=== PATIENT | female | born 1965 | race Caucasian/White ===

== ENCOUNTER 2018-10-19 22:18 | Emergency (ER) | payer OTHER ==
[~2018-10-19] VITALS: Ht 165.1 cm; Wt 70.8 kg
[~2018-10-19 22:18] MED LIST: ALBU90OI INH; ESTROGEN/PROGESTERON; LEVSOD50 PO; Omeprazole20 M1 PO; Sleep Aid25 M1 PO; VAGIFEM10 MCG VG
[2018-10-20] MEDS ORDERED: CITA20 PO (00:33)
== END 2018-10-20 01:17 | disposition home or self-care (01) ==
LOC: ER 22:18
DX: S51.812A Laceration without foreign body of left forearm, initial encounter (principal); Z23 Encounter for immunization; Z79.899 Other long term (current) drug therapy; Z88.1 Allergy status to other antibiotic agents; Z88.8 Allergy status to other drugs, medicaments and biological substances; X58.XXXA Exposure to other specified factors, initial encounter
CPT/HCPCS: 12001; 90471; 90714; 99282-25

== ENCOUNTER 2020-07-19 10:09 | Emergency (ER) | payer OTHER ==
[~2020-07-19] VITALS: Ht 165.1 cm; Wt 72.6 kg
[~2020-07-19 10:09] MED LIST changes: +CITA20 PO
[2020-07-19 10:49] LABS: BASOPHILS ABSOLUTE AUTO 0.05 K/mm3 (0.00-0.23); BASOPHILS PERCENT AUTO 1 % (0-2); EOSINOPHILS ABSOLUTE AUTO 0.16 K/mm3 (0.00-0.68); EOSINOPHILS PERCENT AUTO 3 % (0-6); Hematocrit 41.1 % (33.0-51.0); Hemoglobin 13.7 g/dL (11.5-16.0); IMMATURE GRAN ABSOLUTE AUTO 0.06 K/mm3 (0.00-0.10); IMMATURE GRAN PERCENT AUTO 1 % (0-1); LYMPHOCYTES ABSOLUTE AUTO 1.76 K/mm3 (0.84-5.20); LYMPHOCYTES PERCENT AUTO 29 % (21-46); MONOCYTES ABSOLUTE AUTO 0.61 K/mm3 (0.16-1.47); MONOCYTES PERCENT AUTO 10 % (4-13); Mean Corpuscular HGB 30.4 pg (26.0-34.0); Mean Corpuscular HGB Conc 33.3 g/dL (31.5-36.5); Mean Corpuscular Volume 91 fL (80-100); Mean Platelet Volume 10.9 fL (9.1-12.4); NEUTROPHILS ABSOLUTE AUTO 3.52 K/mm3 (1.96-9.15); NEUTROPHILS PERCENT AUTO 57 % (41-73); Platelet Count 250 K/mm3 (150-400); RDW Coefficient Variation 12.1 % (11.7-14.2); RDW Standard Deviation 40.4 fL (35.1-46.3); Red Blood Cell Count 4.51 M/mm3 (3.80-5.20); White Blood Cell Count 6.16 K/mm3 (4.00-11.30)
[2020-07-19 11:00] LABS: Source, Urine Clean Catch
[2020-07-19 11:01] LABS: Alanine Aminotransfer (ALT/SGP 35 U/L (12-78); Albumin, Blood 3.8 g/dL (3.4-5.0); Albumin/Globulin Ratio 1.2 (0.8-1.8); Alk Phos 98 U/L (50-136); Anion Gap 10 mmol/L (6-16); Aspartate Aminotrans (AST/SGOT 23 U/L (12-37); Bilirubin, Total 0.4 mg/dL (0.1-1.0); Blood Urea Nitrogen 14 mg/dL (8-24); Bun/Creatinine Ratio 20.4 (12.0-20.0); CO2, Blood 23 mmol/L (21-32); Calcium, Blood 8.7 mg/dL (8.5-10.1); Chloride, Blood 110 mmol/L (98-108); Creatinine, Blood 0.69 mg/dL (0.40-1.00); Globulin, Blood 3.3 g/dL (2.2-4.0); Glomerular Filtration Rate >60 (60-); Glucose, Blood 128 mg/dL (70-99); Potassium, Blood 3.8 mmol/L (3.5-5.5); Sodium, Blood 143 mmol/L (136-145); Total Protein, Blood 7.1 g/dL (6.4-8.2)
[2020-07-19 11:07] LABS: Bilirubin, Urine Neg (Neg); Blood, Urine 5+ (Neg); Glucose Qualitative, Urine Neg (Neg); Ketones, Urine Neg (Neg); Leukocyte Esterase, Urine Neg (Neg); Nitrite, Urine Neg (Neg); Protein, Urine Neg (Neg); Urobilinogen, Urine NORM (Normal)
[2020-07-19 11:23] LABS: Appearance, Urine Clear (Clear); Color, Urine Yellow (P-Yellow)
[2020-07-19 11:25] LABS: Bacteria Many /hpf; Red Blood Cells, Urine 50-100 /hpf (0-2); Squamous Epithelial Cells Mod /hpf (Few)
[2020-07-19] MEDS ORDERED: Percocet 5-3251 EACH PO (13:21)
[2020-07-19] MEDS ORDERED: IBUP400 PO (13:21)
[2020-07-19] MEDS ORDERED: Bactrim Ds Tab1 EACH PO (13:21)
[2020-07-19] MEDS ORDERED: ONDA4ODT SL (13:21)
== END 2020-07-19 13:41 | disposition home or self-care (01) ==
LOC: ER 10:09
PROVIDERS: Emergency Medicine
DX: N13.2 Hydronephrosis with renal and ureteral calculous obstruction (principal); R82.81 Pyuria; Z79.899 Other long term (current) drug therapy
CPT/HCPCS: 36415; 74176; 80053; 81001; 81025; 85025; 87086; 96374; 96375; 99284-25; A9270-GY; J1170; J1885; J2405; J7030

== ENCOUNTER → 2020-08-26 | Outpatient (CLI) | payer OTHER ==
[~2020-08-26] MED LIST changes: +Bactrim Ds Tab1 EACH PO; +IBUP400 PO; +ONDA4ODT SL; +Percocet 5-3251 EACH PO
[2020-08-26 12:44] LABS: Source, Urine Clean Catch
[2020-08-26 13:09] LABS: Appearance, Urine Clear (Clear); Bilirubin, Urine Neg (Neg); Blood, Urine Neg (Neg); Color, Urine Yellow (P-Yellow); Glucose Qualitative, Urine Neg (Neg); Ketones, Urine Neg (Neg); Leukocyte Esterase, Urine Neg (Neg); Nitrite, Urine Neg (Neg); Protein, Urine Neg (Neg); Urobilinogen, Urine NORM (Normal); pH, Urine 6.5 (5.0-8.0)
== END | disposition home or self-care (01) ==
LOC: LAB SHORT 12:43 → PLD 12:43 → LAB FUT 08-24 15:10
PROVIDERS: Physician Assistant Medical
DX: N39.0 Urinary tract infection, site not specified (principal)
CPT/HCPCS: 81003; 87077; 87086; 87186

== ENCOUNTER → 2020-09-21 | Outpatient (CLI) | payer OTHER ==
[2020-09-29 19:06] LABS: BRUSHITE 1.63 ratio (0.00-3.00); CALCIUM OXALATE 4.64 ratio (0.00-6.00); CHLORIDE URINE 120 (110-250); CITRIC ACID (CITRATE) 62 mg/L (Not Estab.); CITRIC ACID(CITRATE) 186 mg/24 hr (320-1240); CREATININE, URINE 43.9 mg/dL (Not Estab.); MAGNESIUM, URINE 3.1 mg/dL (Not Estab.); MONOSODIUM URATE 0.81 ratio (0.00-4.00); OSMOLALITY, URINE 334 (300-900); SODIUM, URINE 150 (39-258); SODIUM, URINE 50 mmol/L (Not Estab.); STRUVITE 0.02 ratio (0.00-1.00); URIC ACID 0.25 ratio (0.00-1.20); URINE VOLUME 3000 mL/24 hr (600-1600); URINE VOLUME (PRESERVATIVE) 3000 mL/24 hr (600-1600)
== END | disposition home or self-care (01) ==
LOC: LAB 06:50 → LAB SHORT 06:50 → LAB FUT 07-21 13:35
PROVIDERS: Physician Assistant Medical
DX: N13.2 Hydronephrosis with renal and ureteral calculous obstruction (principal)
CPT/HCPCS: 81003; 81050; 82131; 82140; 82340; 82436; 82507; 82570; 83735; 83935; 83945; 84105; 84133; 84300; 84392; 84560

== ENCOUNTER → 2021-01-14 | Outpatient (CLI) | payer OTHER ==
[2021-01-14 08:52] LABS: Source, Urine Clean Catch
[2021-01-14 09:38] LABS: Bilirubin, Urine Neg (Neg); Blood, Urine 5+ (Neg); Glucose Qualitative, Urine Neg (Neg); Ketones, Urine Neg (Neg); Leukocyte Esterase, Urine 3+ (Neg); Nitrite, Urine Pos (Neg); Protein, Urine 3+ (Neg); Specific Gravity, Urine 1.005 (1.003-1.022); Urobilinogen, Urine NORM (Normal)
[2021-01-14 10:30] LABS: Appearance, Urine Hazy (Clear); Color, Urine Yellow (P-Yellow); White Blood Cells, Urine 50-100 /hpf (0-5)
[2021-01-14 10:31] LABS: Bacteria Few /hpf; Squamous Epithelial Cells Not Seen /hpf (Few)
== END ==
LOC: OLS 08:48 → LAB SHORT 08:48
PROVIDERS: Physician Assistant Medical
DX: R30.0 Dysuria (principal)
CPT/HCPCS: 81001; 87086

== ENCOUNTER → 2021-03-10 | Outpatient (CLI) | payer OTHER | END | disposition home or self-care (01) | LOC: LAB 17:04 → LAB SHORT 17:04 | DX: N39.0 Urinary tract infection, site not specified (principal) | CPT/HCPCS: 87086; 87109 ==

== ENCOUNTER → 2021-04-06 | Outpatient (CLI) | payer OTHER ==
[2021-04-06 16:50] LABS: Source, Urine Clean Catch
[2021-04-06 17:50] LABS: Appearance, Urine Clear (Clear); Bilirubin, Urine Neg (Neg); Blood, Urine Neg (Neg); Glucose Qualitative, Urine Neg (Neg); Ketones, Urine Neg (Neg); Leukocyte Esterase, Urine 2+ (Neg); Nitrite, Urine Neg (Neg); Protein, Urine Neg (Neg); Specific Gravity, Urine 1.005 (1.003-1.022); Urobilinogen, Urine NORM (Normal)
[2021-04-06 18:00] LABS: Color, Urine Pale Yellow (P-Yellow)
[2021-04-06 18:01] LABS: Bacteria Mod /hpf; Red Blood Cells, Urine 0-2 /hpf (0-2); Squamous Epithelial Cells Rare /hpf (Few)
== END | disposition home or self-care (01) ==
LOC: LAB 16:47 → LAB SHORT 16:47
PROVIDERS: Urology
DX: N39.0 Urinary tract infection, site not specified (principal)
CPT/HCPCS: 81001; 87077; 87086; 87109; 87186

== ENCOUNTER 2022-01-09 19:18 | Inpatient (IN) | payer OTHER ==
[~2022-01-09] VITALS: Ht 165.1 cm; Wt 76.8 kg
[2022-01-09 20:58] LABS: Source, Urine Foley catheter
[2022-01-09 21:00] LABS: BASOPHILS ABSOLUTE AUTO 0.04 K/mm3 (0.00-0.23); BASOPHILS PERCENT AUTO 0 % (0-2); EOSINOPHILS ABSOLUTE AUTO 0.02 K/mm3 (0.00-0.68); EOSINOPHILS PERCENT AUTO 0 % (0-6); Hematocrit 38.4 % (33.0-51.0); Hemoglobin 13.4 g/dL (11.5-16.0); IMMATURE GRAN ABSOLUTE AUTO 0.04 K/mm3 (0.00-0.10); IMMATURE GRAN PERCENT AUTO 0 % (0-1); LYMPHOCYTES ABSOLUTE AUTO 0.41 K/mm3 (0.84-5.20); LYMPHOCYTES PERCENT AUTO 3 % (21-46); MONOCYTES ABSOLUTE AUTO 0.74 K/mm3 (0.16-1.47); MONOCYTES PERCENT AUTO 5 % (4-13); Mean Corpuscular HGB 30.9 pg (26.0-34.0); Mean Corpuscular HGB Conc 34.9 g/dL (31.5-36.5); Mean Corpuscular Volume 89 fL (80-100); Mean Platelet Volume 11.1 fL (9.1-12.4); NEUTROPHILS ABSOLUTE AUTO 12.33 K/mm3 (1.96-9.15); NEUTROPHILS PERCENT AUTO 91 % (41-73); Platelet Count 217 K/mm3 (150-400); RDW Coefficient Variation 11.9 % (11.7-14.2); RDW Standard Deviation 38.8 fL (35.1-46.3); Red Blood Cell Count 4.33 M/mm3 (3.80-5.20); White Blood Cell Count 13.58 K/mm3 (4.00-11.30)
[2022-01-09 21:01] LABS: Appearance, Urine Clear (Clear); Bilirubin, Urine Neg (Neg); Blood, Urine Neg (Neg); Glucose Qualitative, Urine Neg (Neg); Ketones, Urine Neg (Neg); Leukocyte Esterase, Urine Neg (Neg); Nitrite, Urine Neg (Neg); Protein, Urine Neg (Neg); Urobilinogen, Urine NORM (Normal)
[2022-01-09 21:07] LABS: Color, Urine Pale Yellow (P-Yellow)
[2022-01-09 21:18] LABS: Albumin, Blood 4.1 g/dL (3.4-5.0); Albumin/Globulin Ratio 1.4 (0.8-1.8); Bilirubin, Total 0.4 mg/dL (0.1-1.0); Bun/Creatinine Ratio 20.9 (12.0-20.0); Calcium, Blood 8.9 mg/dL (8.5-10.1); Creatinine, Blood 0.67 mg/dL (0.40-1.00); Globulin, Blood 2.9 g/dL (2.2-4.0); Potassium, Blood 3.7 mmol/L (3.5-5.5)
[2022-01-09 22:44] LABS: SARS-Cov-2 (COVID-19) PCR, MMC NEGATIVE (NEGATIVE)
--- NOTE | 2022-01-10 04:55 | NUR ---
SHIFT SUMMARY SINCE ARRIVAL TO THE FLOOR AT APPROX 0000, PT HAS BEEN PLEASANT AND COOPERATIVE WITH CARE AND IS A/O X4. L LEG IS SPLINTED AND ELEVATED. PT HAS BEEN TREATED FOR PAIN W/ IV PAIN MEDICATION PRN. SEARS DRAINING TO GRAVITY. VITAL SIGNS STABLE. L LEG IS DUSKY- PT ABLE TO WIGGLE TOES AND REPORTS NO NUMBNESS OR TINGLING THROUGHOUT THE SHIFT- PEDAL PULSES ARE STRONG. PT REMAINED NPO THROUGHOUT SHIFT. WILL CONTINUE TO MONITOR AND REPORT TO ONCOMING RN.
--- NOTE | 2022-01-10 10:41 | NUR ---
01/10/22 1041 Blossom Cage PATIENT ARRIVED TO OR WITH SEARS CATHETER IN PLACE DRAINING YELLOW URINE.
--- NOTE | 2022-01-10 13:42 | NUR ---
CONSTIPATION PT REPORTS HAVING HISTORY OF CONSTIPATION, GAVE MORNING DOSE OF POLYETHYLENE GLYCOL WHICH WAS HELD EARLIER DUE TO HER BEING NPO FOR SURGERY.
--- NOTE | 2022-01-10 18:44 | NUR ---
SHIFT SUMMARY POD0 L TIBIAL INTERMEDULLARY NAILING, A/O X4, VSS, TOLERATING PO, PAIN MANAGED PER EMAR. WORKED WITH PT TODAY AND WAS UP TO CHAIR FOR A FEW HOURS, ORAL PAIN MEDS SUPPLEMENTED WITH IV PAIN MEDS D/T INCREASED PAIN. SOME NAUSEA AFTER IV PAIN MEDICATIONS WHICH WERE COVERED WITH MEDS PER EMAR. NO ACUTE EVENTS THIS SHIFT, CALL LIGHT IN REACH, WILL REPORT TO ONCOMING NOC RN.
[2022-01-11 03:54] LABS: BASOPHILS ABSOLUTE AUTO 0.02 K/mm3 (0.00-0.23); BASOPHILS PERCENT AUTO 0 % (0-2); EOSINOPHILS PERCENT AUTO 0 % (0-6); Hematocrit 32.1 % (33.0-51.0); IMMATURE GRAN ABSOLUTE AUTO 0.06 K/mm3 (0.00-0.10); IMMATURE GRAN PERCENT AUTO 1 % (0-1); LYMPHOCYTES PERCENT AUTO 5 % (21-46); MONOCYTES ABSOLUTE AUTO 0.88 K/mm3 (0.16-1.47); MONOCYTES PERCENT AUTO 8 % (4-13); Mean Corpuscular HGB 31.1 pg (26.0-34.0); Mean Corpuscular HGB Conc 34.3 g/dL (31.5-36.5); Mean Corpuscular Volume 91 fL (80-100); Mean Platelet Volume 10.8 fL (9.1-12.4); NEUTROPHILS ABSOLUTE AUTO 10.19 K/mm3 (1.96-9.15); NEUTROPHILS PERCENT AUTO 87 % (41-73); Platelet Count 201 K/mm3 (150-400); RDW Coefficient Variation 12.2 % (11.7-14.2); Red Blood Cell Count 3.54 M/mm3 (3.80-5.20); White Blood Cell Count 11.75 K/mm3 (4.00-11.30)
--- NOTE | 2022-01-11 05:01 | NUR ---
SHIFT SUMMARY, PT POD1 FOR L TIB/FIB REPAIR. LLE WRAPPED IN RADHA BANADAGE, C/D/I. SLIGHT SWELLING OF THE L TOES AND FOOT, DENIES N/T. PT ABLE TO WIGGLE TOES, AND HAS GOOD CAP REFILL. PT MEDICATED FOR PAIN PER EMAR, C/O OF PAIN WANTED TO TRY PERCOCET INSTEAD OF NORCO. NEW ORDER OBTAINED HAVE NOT GIVEN IT YET PT PAIN IS MANAGED AT THIS TIME.ICE PACK TO LLE, ELEVATED ON PILLOWS. PATIENT SEARS DRAINED TO GRAVITY, PLAN TO DC THIS AM. PLAN FOR PHYSICAL THERAPY AND POSSIBLE DC HOME. PATIENT IS NWB, LLE WILL NEED ASSISTANCE WITH ADL'S. CALL LIGHT IN REACH, WILL CONTINUE CARE ROUNDING.
--- NOTE | 2022-01-11 05:19 | NUR ---
POD 1 S/P LEFT TIBIA RODDING. PT VSS T/O NIGHT. DRESSING CDI. LLE ELEVATED, CAP REFILL WNL, PEDAL PUSLE STRONG. PT REP MINIMAL RELIEF FROM NORCO, NEEDING IV DILAUDID FOR BREAKTHROUGH PAIN, NEW ORDER FOR PERCOCET OBTAINED. PT YEYO PO, REP MILD NAUSEA, NO EMESIS. SEARS PATANT DRNG YELLOW URINE. PLAN TO MOBILIZE W/PT TODAY.
[2022-01-11] MEDS ORDERED: ACET500 PO (16:04)
--- NOTE | 2022-01-11 18:28 | NUR ---
DISCHARGE SUMMARY POD1 L TIBIAL RODDING, A/O X4, VSS, TOLERATIN PO, PAIN WELL MANAGED PER EMAR. REMOVED IV ACCESS AND NO OTHER ACCESS DEVICES IN PLACE. DISCUSSED DISCHARGE INFORMATION WITH THE PATIENT INCLUDING HOME CARE, DRESSING CHANGES, PAIN MANAGEMENT, FOLLOW UPS, AND CONTACT INFORMATION SHOULD QUESTIONS/CONCERNS COME UP AFTER DISCHARGE. PT HAD NO QUESTIONS. EXCORTED OUT VIA WC TO PRIVATE AUTO TO GO HOME WITHOUT INCIDENT.
== END 2022-01-11 17:15 | disposition home or self-care (01) | DRG 494 ==
LOC: ER 19:18 → SURS 21:28
PROVIDERS: Family Medicine; Orthopaedic Surgery; ADMIT Internal Medicine
PROC: 0QSH36Z Reposition Left Tibia with Intramedullary Internal Fixation Device, Percutaneous Approach (ICD-10-PCS; principal; 2022-01-10 09:00)
DX: S82.252A Displaced comminuted fracture of shaft of left tibia, initial encounter for closed fracture (principal); S82.452A Displaced comminuted fracture of shaft of left fibula, initial encounter for closed fracture; S82.62XA Displaced fracture of lateral malleolus of left fibula, initial encounter for closed fracture; Z20.822 Contact with and (suspected) exposure to COVID-19; D64.9 Anemia, unspecified; D72.829 Elevated white blood cell count, unspecified; R00.0 Tachycardia, unspecified; E03.9 Hypothyroidism, unspecified; K59.09 Other constipation; K21.9 Gastro-esophageal reflux disease without esophagitis; I10 Essential (primary) hypertension; F32.A Depression, unspecified; Z79.899 Other long term (current) drug therapy; Z90.710 Acquired absence of both cervix and uterus; Z90.2 Acquired absence of lung [part of]; Z98.890 Other specified postprocedural states; Z88.1 Allergy status to other antibiotic agents; Z88.8 Allergy status to other drugs, medicaments and biological substances; V86.95XA Unspecified occupant of 3- or 4- wheeled all-terrain vehicle (ATV) injured in nontraffic accident, initial encounter
CPT/HCPCS: 29515; 36415; 51702; 73502; 73590; 80053; 81003; 85025; 86850; 86900; 86901; 96374-59; 96375-59; 96376-59; 97110; 97116; 97161; 97165; 99285-25; A9270; C1713; C1769; J1100; J1170; J1885; J2250; J2405; J2704; J2765; J2795; J3010; J7030; J7120; U0004

== ENCOUNTER 2022-09-12 08:44 | Day surgery (SDC) | payer OTHER ==
[~2022-09-12] VITALS: Ht 165.1 cm; Wt 73.6 kg
[~2022-09-12 08:44] MED LIST changes: +ACET500 PO
[2022-09-12] MEDS ORDERED: BUPR75 PO (09:24)
[2022-09-12] MEDS ORDERED: Cyclobenzaprine5 MG PO (09:25)
== END 2022-09-12 12:10 | disposition home or self-care (01) ==
LOC: ORSCSDS 08:44
PROVIDERS: Orthopaedic Surgery
PROC: 0QPH04Z Removal of Internal Fixation Device from Left Tibia, Open Approach (ICD-10-PCS; principal; 2022-09-12 10:00)
DX: S82.252G Displaced comminuted fracture of shaft of left tibia, subsequent encounter for closed fracture with delayed healing (principal); I10 Essential (primary) hypertension; E03.9 Hypothyroidism, unspecified; K21.9 Gastro-esophageal reflux disease without esophagitis; Z79.899 Other long term (current) drug therapy
CPT/HCPCS: A9270; J0690; J1100; J1885; J2250; J2405; J2704; J3010; J7120

== ENCOUNTER → 2022-10-13 | Outpatient (CLI) | payer OTHER ==
[~2022-10-13] MED LIST changes: +BUPR75 PO; +Cyclobenzaprine5 MG PO
[2022-10-13 13:14] LABS: Source, Urine Clean Catch
[2022-10-13 15:42] LABS: Appearance, Urine Clear (Clear); Bilirubin, Urine Neg (Neg); Blood, Urine Neg (Neg); Color, Urine Yellow (P-Yellow); Glucose Qualitative, Urine Neg (Neg); Ketones, Urine Neg (Neg); Leukocyte Esterase, Urine 1+ (Neg); Nitrite, Urine Neg (Neg); Protein, Urine Neg (Neg); Urobilinogen, Urine NORM (Normal)
[2022-10-13 16:01] LABS: Bacteria Few /hpf; Red Blood Cells, Urine 0-2 /hpf (0-2); Squamous Epithelial Cells Rare /hpf (Few)
[2022-10-14 10:19] LABS: Candida species (DNA Probe) Negative (NEGATIVE); G. vaginalis (DNA Probe) Negative (NEGATIVE); T. vaginalis (DNA Probe) Negative (NEGATIVE)
== END | disposition home or self-care (01) ==
LOC: LAB 12:52 → LAB SHORT 12:52
PROVIDERS: Obstetrics & Gynecology
DX: R30.0 Dysuria (principal)
CPT/HCPCS: 81001; 87077; 87086; 87186; 87480; 87510; 87660

== ENCOUNTER → 2023-02-15 | Outpatient (CLI) | payer OTHER | END | disposition home or self-care (01) | LOC: LAB 08:33 → LAB SHORT 08:33 | DX: N39.0 Urinary tract infection, site not specified (principal) | CPT/HCPCS: 87077; 87086; 87186 ==